=== PATIENT | female | born 1995 | race Two or more races ===

== ENCOUNTER 2019-02-08 12:59 | Emergency (ER) | payer OTHER ==
--- NOTE | 2019-02-08 14:09 | EDPHY ---
H & P Stated Complaint: Calculus 3 exam, syncope, anxiety Time Seen by Provider: 02/08/19 13:48 HPI/ROS: HPI: Is a 23-year-old female who presents with Chief Complaint: Calculus 3 exam, syncope, anxiety Location: Head Quality: Feeling faint Duration: Prior to arrival Signs and Symptoms: no shortness of breath at rest, no shortness of breath on exertion, no cough, no chest pain, no palpitations, no lower extremity edema, no wheezing, no orthopnea, no paroxysmal nocturnal dyspnea, no fever, no injury/ trauma, no hemoptysis, no carpal pedal spasms Timing: Acute, resolved Severity: [id number] Context: Patient is a student at [employer], moved to [place] approximately 4 years ago, sitting in college starting to take her calculus exam when she started to feel flushed and "warm all over." She then woke up with her teacher standing over her. Her teacher told EMS that she did not hit her head or have urinary incontinence. No history of seizure disorder. No seizure activity seen. No tongue biting. Patient reports that she felt prepared for the test and denies being anxious. She denies any alcohol or excessive caffeine use. She did report that she ate breakfast prior to exam. No cardiac history. She denies headache, vision changes, fever, neck stiffness , dizziness. Modifying Factors: None Comment: ROS: A comprehensive 10 system review of systems is otherwise negative aside from elements mentioned in the history of present illness. MEDICAL/SURGICAL/SOCIAL HISTORY: Medical history: Prolapse heart valve. Does not take any regular medications. LMP 2-3 weeks ago. Surgical history: Denies Social history: Student at [employer]. Nonsmoker. CONSTITUTIONAL: Well-developed, well-nourished young adult female, awake and alert, no obvious distress HEENT: Atraumatic and normocephalic, PERRL, EOMI. Nares patent; no rhinorrhea; no nasal mucosal edema. Tympanic membranes clear. Oropharynx clear, no exudate and moist pink mucosa. Airway patent. No lymphadenopathy. No meningismus. Cardiovascular: Normal S1/S2, regular rate, regular rhythm, without murmur rub or gallop. PULMONARY/CHEST: Symmetrical and nontender. Clear to auscultation bilaterally. Good air movement. No accessory muscle usage. ABDOMEN: Soft, nondistended, nontender, no rebound, no guarding, no peritoneal signs, no masses or organomegaly. No CVAT. EXTREMITIES: 2/2 pulses, strength 5/5, no deformities, no clubbing, no cyanosis or edema. NEUROLOGICAL: no focal neuro deficits. GCS 15. Cranial nerves 2-12 grossly intact. Normal Romberg testing. Negative pronator drift. SKIN: Warm and dry, no erythema. no rash. Good capillary refill. Source: Patient Exam Limitations: No limitations - Personal History LMP (Females 10-55): 22-28 Days Ago Current Tetanus/Diphtheria Vaccine: Unsure Current Tetanus Diphtheria and Acellular Pertussis (TDAP): Unsure - Medical/Surgical History Hx Asthma: Yes Hx Chronic Respiratory Disease: No Hx Diabetes: No Hx Cardiac Disease: Yes Hx Renal Disease: No Hx Cirrhosis: No Hx Alcoholism: No Hx HIV/AIDS: No Hx Splenectomy or Spleen Trauma: No Other PMH: Prolapsed heart valve - Social History Smoking Status: Never smoked Constitutional: Initial Vital Signs Temperature (C) 37.1 C 02/08/19 12:59 Heart Rate 87 02/08/19 12:59 Respiratory Rate 16 02/08/19 12:59 Blood Pressure 123/72 H 02/08/19 12:59 O2 Sat (%) 98 02/08/19 12:59 O2 Delivery Mode Room Air Allergies/Adverse Reactions: No Known Allergies Allergy (Unverified 02/08/19 13:13) Home Medications: Medication Instructions Recorded NK [No Known Home Meds] 02/08/19 Medical Decision Making ED Course/Re-evaluation: Vital signs reviewed and stable upon arrival. Placed on outbound telemarketer no arrhythmias, heart blocks or acute coronary syndrome seen. EKG my read shows normal sinus rhythm with a rate of 85 beats per minute, no acute ischemic changes, no heart block, no arrhythmias. No neurological deficits and maintaining well. Do not need imaging of the brain. IV access and laboratory studies ordered Orthostatics were negative. Laboratory studies reviewed and No signs of leukocytosis/anemia/platelet dysfunction/DEXTER/electrolyte imbalance/VTE/. Patient monitored for 4 hr in the emergency room without return of symptoms. Notified by RN that patient asking to be discharged home. Referred back to primary care provider and Neurology follow-up as needed. School excuse provided. Suspect this is related to anxiety from her calculus final. This patient was seen under the supervision of my primary supervising physician. I evaluated and cared for this patient independently. Differential Diagnosis: Syncope including but not limited to vasovagal syncope, arrhythmia, dehydration , and blood loss. - Data Points Laboratory Results: Laboratory Results 02/08/19 14:27 02/08/19 14:27 02/08/19 02/08/19 02/08/19 15:25 14:27 14:27 WBC RBC Hgb Hct MCV MCH MCHC RDW Plt Count MPV Neut % (Auto) Lymph % (Auto) [place] % (Auto) Eos % (Auto) Baso % (Auto) Nucleat RBC Rel Count Absolute Neuts (auto) Absolute Lymphs (auto) Absolute Monos (auto) Absolute Eos (auto) Absolute Basos (auto) Absolute Nucleated RBC Immature Gran % Immature Gran # D-Dimer 0.37 ug/mLFEU ug/mLFEU (0.00-0.50) Sodium 138 mEq/L mEq/L (135-145) Potassium 4.2 mEq/L mEq/L (3.5-5.2) Chloride 107 mEq/L mEq/L (97-110) Carbon Dioxide 22 mEq/l mEq/l (22-31) Anion Gap 9 mEq/L mEq/L (6-14) BUN 13 mg/dL mg/dL (7-23) Creatinine 0.6 mg/dL mg/dL (0.6-1.0) Estimated GFR > 60 Glucose 96 mg/dL mg/dL (70-100) Calcium 9.9 mg/dL mg/dL (8.5-10.4) Beta HCG, Qual NEGATIVE 02/08/19 14:27 WBC 8.71 10^3/uL 10^3/uL (3.80-9.50) RBC 4.78 10^6/uL 10^6/uL (4.18-5.33) Hgb 14.2 g/dL g/dL (12.6-16.3) Hct 42.3 % % (38.0-47.0) MCV 88.5 fL fL (81.5-99.8) MCH 29.7 pg pg (27.9-34.1) MCHC 33.6 g/dL g/dL (32.4-36.7) RDW 12.2 % % (11.5-15.2) Plt Count 188 10^3/uL 10^3/uL (150-400) MPV 10.9 fL fL (8.7-11.7) Neut % (Auto) 72.7 % % (39.3-74.2) Lymph % (Auto) 20.0 % % (15.0-45.0) [place] % (Auto) 6.4 % % (4.5-13.0) Eos % (Auto) 0.5 % L % (0.6-7.6) Baso % (Auto) 0.3 % % (0.3-1.7) Nucleat RBC Rel Count 0.0 % % (0.0-0.2) Absolute Neuts (auto) 6.33 10^3/uL 10^3/uL (1.70-6.50) Absolute Lymphs (auto) 1.74 10^3/uL 10^3/uL (1.00-3.00) Absolute Monos (auto) 0.56 10^3/uL 10^3/uL (0.30-0.80) Absolute Eos (auto) 0.04 10^3/uL 10^3/uL (0.03-0.40) Absolute Basos (auto) 0.03 10^3/uL 10^3/uL (0.02-0.10) Absolute Nucleated RBC 0.00 10^3/uL 10^3/uL (0-0.01) Immature Gran % 0.1 % % (0.0-1.1) Immature Gran # 0.01 10^3/uL 10^3/uL (0.00-0.10) D-Dimer Sodium Potassium Chloride Carbon Dioxide Anion Gap BUN Creatinine Estimated GFR Glucose Calcium Beta HCG, Qual Medications Given: Discontinued Medications Sodium Chloride (Ns) 1,000 mls @ 0 mls/hr IV ONCE ONE; Wide Open PRN Reason: Protocol Stop: 02/08/19 14:31 Last Admin: 02/08/19 14:37 Dose: 1,000 mls Lorazepam (Ativan Injection) 1 mg IVP EDNOW ONE Stop: 02/08/19 14:31 Last Admin: 02/08/19 14:36 Dose: 1 mg Departure - Departure Disposition: Home, Routine, Self-Care Clinical Impression: Fainting episodes Qualifiers: Syncope type: unspecified Qualified Code(s): R55 - Syncope and collapse Condition: Good Instructions: Syncope (ED), Near Syncope (ED) Additional Instructions: Rest as much as possible until you are feeling better. Consume a minimum of 8-10 glasses of water or electrolyte fluid replacement drinks that include Gatorade, Powerade, Pedialyte. Follow-up with primary care provider in the next 5-7 days. Return at once for any worsening symptoms or concerns. Referrals: Patient,NotPresent [Unknown] - As per Instructions [facility] [Clinic] - As per Instructions Stand Alone Forms: School Excuse
[2019-02-08] MEDS ORDERED: LORazepam 2 MG/ML INJ IVP ONE (14:30)
[2019-02-08] MEDS ORDERED: NS 1,000 ML IV ONE (14:30)
[2019-02-08 14:36] LABS: PLATELET COUNT 188 10^3/uL (150-400)
[2019-02-08 16:39] VITALS: BP 121/78
--- NOTE | 2019-02-08 21:07 | CPEKG ---
Test Reason : OPEN Blood Pressure : / mmHG Vent. Rate : 085 BPM Atrial Rate : 082 BPM P-R Int : 129 ms QRS Dur : 078 ms QT Int : 364 ms P-R-T Axes : 050 072 055 degrees QTc Int : 433 ms Sinus rhythm Confirmed by Abril Hobbs ([id number]) on 02/08/2019 9:07:38 PM Referred By: PHYSICIAN ED Confirmed By:Abril Hobbs
== END 2019-02-08 16:47 | disposition home or self-care (01) ==
DX: R55 Syncope and collapse (principal); E86.9 Volume depletion, unspecified
CPT/HCPCS: 96374; J2060